=== PATIENT | male | born 1970 | race African-American/Black ===

== ENCOUNTER 2020-10-04 17:30 | Emergency (ER) | payer BC ==
[~2020-10-04] VITALS: Ht 185.4 cm; Wt 95.5 kg
[2020-10-04] MEDS ORDERED: OXYC1TAB6 PO (17:54)
[2020-10-04] MEDS ORDERED: HYDR-4069 PO (17:54)
[2020-10-04] MEDS ORDERED: ASPIRIN 81 MG CHEWABLE TABLET PO ONE (18:15)
[2020-10-04 19:38] VITALS: BP 131/100
== END 2020-10-04 20:44 | disposition home or self-care (01) ==
LOC: EMS 17:35
DX: R07.89 Other chest pain (principal); F41.9 Anxiety disorder, unspecified
CPT/HCPCS: 84484; 93005; 99284